=== PATIENT | female | born 1985 | race African-American/Black ===

== ENCOUNTER 2016-10-26 10:18 | Emergency (ER) | payer OTHER ==
[~2016-10-26] VITALS: Ht 154.9 cm; Wt 115.2 kg
[2016-10-26 11:38] VITALS: BP 131/89
== END 2016-10-26 11:38 | disposition home or self-care (01) ==
LOC: ED 10:18
DX: J06.9 Acute upper respiratory infection, unspecified (principal); J45.909 Unspecified asthma, uncomplicated